=== PATIENT | male | born 1990 | race African-American/Black ===

== ENCOUNTER → 2020-12-23 | Outpatient (CLI) | payer OTHER | LOC: INF 11:18 | PROVIDERS: ATTEND Internal Medicine | DX: Z23 Encounter for immunization (principal) | CPT/HCPCS: 96372 ==

== ENCOUNTER 2021-01-14 14:58 | Outpatient (CLI) | payer OTHER | END 2021-01-14 21:34 | disposition home or self-care (01) | LOC: INF 14:58 | PROVIDERS: ATTEND Internal Medicine | DX: Z23 Encounter for immunization (principal) | CPT/HCPCS: 96372 ==